=== PATIENT | female | born 1950 | race Caucasian/White ===

== ENCOUNTER 2020-06-24 14:33 | Inpatient (IN) ==
[2020-06-24] MEDS ORDERED: 0.9 % SODIUM CHLORIDE 2,000 ML IV ONE (14:48)
--- NOTE | 2020-06-24 14:49 | Emergency Department Note ---
Recheck HPI General Chief Complaint: Recheck/Abnormal Lab/Rx Stated Complaint: high calcium Time Seen by Provider: 06/24/20 15:39 Source: patient and other Mode of arrival: ambulatory Limitations: no limitations History of Present Illness HPI Narrative: Narrative: 70-year-old Leigh nAn Winkler comes in today for a calcium level of 19.3 and kidney failure. She is developmentally delayed and has a history of seizures. She is shaky and has jerking muscles and apparently she has been falling over at [facility]. She is very hard of hearing and there is concerned she may be dehydrated. She is rambling and I am unable to get meaningful history or review of systems from her. Regular doctor, Dr. Tyson ordered labs this morning and above findings are noted Laboratory shows undetectable Dilantin level. CBC with a hemoglobin of 16.6. CMP shows mildly elevated glucose and marked elevated creatinine at 2.9. Calcium is 19.3 and magnesium is 2.9 however potassium is 3.5 Review of her medicine list does show that she is on exogenous calcium tablets as well as hydrochlorothiazide and Lasix. She additionally takes vitamin D. She is DNR per documents Related Data Home Medications Medication Instructions Recorded Confirmed cholecalciferol (vitamin D3) 50 2,000 unit PO QDAY cap 06/28/17 04/09/20 mcg (2,000 unit) capsule acetaminophen 325 mg tablet 650 mg PO Q6H PRN 02/07/19 04/09/20 calcium carbonate 500 mg calcium 500 mg PO QDAY tab 02/07/19 04/09/20 (1,250 mg) tablet fluticasone furoate 27.5 1 spray INTRANASAL QDAY 02/07/19 04/09/20 mcg/actuation nasal spray,suspension multivitamin 1 cap PO QAM 02/07/19 04/09/20 furosemide [Lasix] 40 mg PO QDAY 06/24/20 06/24/20 Previous Rx's Medication Instructions Recorded comp.stocking,knee,long,medium #12 each 02/07/19 spironolactone 25 mg tablet 12.5 mg PO QDAY #30 tab 03/25/20 hydrochlorothiazide 25 mg tablet 25 mg PO QDAY #30 tab 04/14/20 phenytoin 50 mg chewable tablet 50 mg PO .COMPLEX #30 tab 04/21/20 citalopram 20 mg tablet 20 mg PO BID #60 tab 04/28/20 metoprolol tartrate 50 mg tablet 50 mg PO BID #60 tab 04/28/20 Allergies Allergy/AdvReac Type Severity Reaction Status Date / Time No Known Drug Allergies Allergy Verified 06/24/20 14:38 Review of Systems ROS ROS Narrative: Narrative: Limitations: ROS unobtainable due to patients medical condition PFSH Narrative Patient History Narrative: Narrative: Medical/Surgical/Family History All Active Problems (Updated 06/24/20 @ 20:28 by Alfa Maxwell MD) Acute kidney injury (Acute) Acute hypokalemia (Acute) Hypercalcemia (Acute) Wound of lower extremity (Acute) Fall (Acute) Venous stasis dermatitis (Chronic) Developmental disability (Chronic) Laceration (Acute) Lower extremity edema (Acute) Encounter for Health Maintenance Examination in Adult (Chronic) Incontinence in female (Chronic) Seizures (Chronic ~1978) Hypertension, essential (Chronic) Anxiety (Chronic) Medical History Anxiety (Chronic) Developmental disability (Chronic) likely due to anoxic brain injury at Encounter for Health Maintenance Examination in Adult (Chronic) 06/19/18 Hypertension, essential (Chronic) Lower extremity edema (Acute) Seizures (Chronic ~1978) in 20s and 30s without recurrence Venous stasis dermatitis (Chronic) Surgical History Squamous cell carcinoma (Resolved) removed 2015 from rt side of her face Family History Mother Arthritis Dementia Hypertension, essential Father Arthritis Melanoma Hypertension, essential Social History Smoking Status: Never smoker Alcohol Intake Frequency: does not drink Substance Use: does not use Exam Narrative Narrative: Narrative: Patient has gross hearing loss but I am able to communicate with her. She is alert, while she will answer questions she will not give me any meaningful review history-clearly has global developmental delay versus underlying dementia. It does not sound like she is sick nor have a history of injury. Normocephalic atraumatic. Conjunctive are clear sclerae white nonicteric. No nasal discharge or congestion. Oropharynx is with dry bu ccal mucosa. She has relatively poor dentition. Neck is supple without lymphadenopathy thyromegaly or carotid bruit. Heart is regular rate and rhythm no murmurs appreciated. Lungs are clear to auscultation bilaterally without wheezes rales rhonchi or respiratory distress. Abdomen is soft nontender nondistended. No pedal edema. General Limitations: no limitations Course Vital Signs Vital signs: Vital Signs Temperature 97.2 F 06/24/20 14:34 Pulse Rate 78 06/24/20 14:34 Respiratory Rate 21 06/24/20 14:34 Blood Pressure 132/86 06/24/20 14:34 Pulse Oximetry (%) 92 06/24/20 14:34 Temperature 97.2 F 06/24/20 14:34 Pulse Rate 66 06/24/20 20:01 Respiratory Rate 14 06/24/20 20:01 Blood Pressure 108/57 06/24/20 20:01 Pulse Oximetry (%) 93 06/24/20 20:01 [facility] MDM Narrative Medical decision making narrative: Narrative: After ordering treatment for hyp ercalcemia with renal failure, I discussed the situation with Dr. Butt, the well flow operator. I ordered calcitonin, zoledronic acid, and IV fluid. The well flow operator had me repeat laboratory and get an EKG. So I ordered a Chem-8 as this has ionized calcium on it It took us a while to start IV-she is a difficult stick- but we did start IV fluids. Up-to-date says that zoledronic acid is okay up to 4.5 creatinine and she is at 2.9 so we will go ahead and do that. Calcitonin was unavailable. I discussed the patient's situation with her sister, the Bev LUO. She was agreeable with this doing dialysis if needed to save the patient's life and transport if needed. Repeat laboratory concerned the hypercalcemia was real Dr. Butt said that the patient definitely needed calcitonin tonight so re commended we send the patient to [facility] if they have the medicine. So I discussed the situation with Dr. Stanley-hospitalist at [facility]-he seemed to think that we would be able to just send the medicine over and that the patient did not have to come over. So I talked to the pharmacist Delia on the sixth floor [facility] and she agreed to send us some calcitonin so the patient would not have to go over to [facility]. This seemed to be an agreeable solution so I called back Dr. Butt, our well flow operator who agreed to consult on the patient in our hospital, if we could get the calcitonin. Nursing staff will get this arranged. I did discuss the situation with Dr. Russo, our hospitalist who agreed to accept the patient for admission. She will go to the PCU At the time of admission, vital signs were stable and she was making urine after getting IV fluids. Dr. Butt, did not feel she needed urgent dialysis tonight that we could continue to treat with IV fluids and calcitonin. Lab Data Lab results reviewed: Yes I reviewed the patient's lab results. Labs: Lab Results 06/24/20 06/24/20 06/24/20 Range/Units 15:07 16:33 16:33 POC Hct 47.0 (36.0-48.0) % VBG Lactic Acid 2.2 H (0.5-2.0) mmol/L POC Sodium 136 (133-145) mmol/L POC Potassium 2.9 L* (3.3-5.1) mmol/L POC Chloride 90 L (96-108) mmol/L POC Total CO2 36 H (22-30) mmol/L POC BUN 65 H (8-23) mg/dl POC Creatinine 3.0 H (0.6-1.1) mg/dl POC Glucose 99 (70-105) mg/dL Calcium (8.6-10.4) mg/dl POC WB Ioniz Calcium 2.00 H* (1.16-1.32) mmol/L Total Protein (PEP) 6.9 (5.9-8.4) gm/dL 25-OH Vitamin D Total (>=30) ng/mL PTH Intact 6.0 L (15-65) pg/ml Urine Color Urine Appearance Urine pH (5.0-9.0) Ur Specific [place] (1.000-1.035) Urine Protein (NEG) mg/dL Urine Glucose (UA) (NEG) mg/dL Urine Ketones (NEG) mg/dL Urine Occult Blood (<0.03) mg/dL Urine Nitrate (NEG) Urine Bilirubin (NEG) mg/dL Urine Urobilinogen (NEG) mg/dL Ur Leukocyte Esterase (NEG) /uL 06/24/20 06/24/20 06/24/20 Range/Units 16:33 16:33 17:23 POC Hct (36.0-48.0) % VBG Lactic Acid (0.5-2.0) mmol/L POC Sodium (133-145) mmol/L POC Potassium (3.3-5.1) mmol/L POC Chloride (96-108) mmol/L POC Total CO2 (22-30) mmol/L POC BUN (8-23) mg/dl POC Creatinine (0.6-1.1) mg/dl POC Glucose (70-105) mg/dL Calcium 19.4 H* (8.6-10.4) mg/dl POC WB Ioniz Calcium (1.16-1.32) mmol/L Total Protein (PEP) (5.9-8.4) gm/dL 25-OH Vitamin D Total 68.44 (>=30) ng/mL PTH Intact (15-65) pg/ml Urine Color Yellow Urine Appearance Clear Urine pH 7.0 (5.0-9.0) Ur Specific [place] 1.010 (1.000-1.035) Urine Protein Neg (NEG) mg/dL Urine Glucose (UA) Negative (NEG) mg/dL Urine Ketones Neg (NEG) mg/dL Urine Occult Blood Neg (<0.03) mg/dL Urine Nitrate Neg (NEG) Urine Bilirubin Neg (NEG) mg/dL Urine Urobilinogen Neg (NEG) mg/dL Ur Leukocyte Esterase Neg (NEG) /uL CC TIME Critical Care Time Critical Care Time: No Total Critical Care Time: 30 Attestation: Approximately 30 minutes of critical care time which includes multiple phone calls for care coordination, discussing the situation with the patient's sister who is the D POA, reviewing studies and labs, serial evaluation and documentation. I was immediately available to the patient the entire time she was in the ER Discharge Plan Patient/Caregiver Discharge Instructions Pt seen by BENCH JEWELER/PA only: No Clinical Impression: Hypercalcemia, Acute kidney injury, Acute hypokalemia, Developmental disability Patient Disposition: Xfer As Inpt ([facility]) Condition: Critical Follow up with: Adrienne Butt MD [Physician] - Beverley Tyson DO [Primary Care Provider] - Prescriptions: No Action spironolactone 25 mg tablet 12.5 mg PO QDAY Qty: 30 RF: 3 hydrochlorothiazide 25 mg tablet 25 mg PO QDAY Qty: 30 RF: 3 phenytoin 50 mg tablet,chewable 50 mg PO .COMPLEX Qty: 30 RF: 3 citalopram 20 mg tablet 20 mg PO BID Qty: 60 RF: 2 metoprolol tartrate 50 mg tablet 50 mg PO BID Qty: 60 RF: 2 cholecalciferol (vitamin D3) 2,000 unit capsule 2,000 unit PO QDAY RF: 0 multivitamin capsule capsule 1 cap PO QAM RF: 0 fluticasone furoate 27.5 mcg/actuation spray,suspension 1 spray INTRANASAL QDAY RF: 0 calcium carbonate [Calcium 500] 500 mg calcium (1,250 mg) tablet 500 mg PO QDAY RF: 0 acetaminophen [Tylenol] 325 mg tablet 650 mg PO Q6H PRN (Reason: Pain) RF: 0 (DME) comp.stocking,knee,long,medium misc See Dose Instructions .ROUTE .MEDSUPPLY Qty: 12 RF: 0 furosemide [Lasix] 20 mg tablet 40 mg PO QDAY RF: 0
[2020-06-24] MEDS ORDERED: ZOLEDRONIC AC/MANNITOL/0.9NACL 4 MG/100 ML PIGGYBACK IV ONE ×2 (14:52→15:15)
[2020-06-24] MEDS ORDERED: CALCITONIN 400 UNIT/2 ML VIAL IM ONE ×2 (14:57→20:41)
[2020-06-24] MEDS ORDERED: ZOLEDRONIC ACID/WATER 4 MG/100 ML BAG IV ONE (15:15)
--- NOTE | 2020-06-24 16:35 | Nephrology Consult Note ---
HPI Data of Consult Consult date: 06/24/20 Primary Care Provider: Beverley Tyson DO Consult Narrative Reason for consult: hypercalcemia History of present illness: history obtained from discussion with healthcare providers as the patient has developmental delay 70 y.o F resident at [place], sent to ED for management of hypercalcemia 19.3- albumin 4.2. She had a tremor that triggered blood work. She has underlying CKD and developmental delay. She is on calcium 1.2 gram once a day, HCTZ 25mg po once a day, lasix 40mg po daily, multivitamin, spironolactone, vitamin D. Physical exam: Vital signs reviewed. General no acute distress HEENT nonicteric sclerae. Chest nonlabored respirations, no adventitious sounds over the anterior aspect Cardiovascular regular rate and rhythm, present radial pulses Abdomen nontender Skin warm and dry Neuro answers simple questions generally with one-word or 2 word sentences cc:: CC: Review of Systems Review of systems: unable to obtain accurate ROS 2/2 baseline mental status PFSH PFSH All Active Problems (Updated 06/24/20 @ 16:35 by Adrienne Butt MD) Hypercalcemia (Acute) Wound of lower extremity (Acute) Fall (Acute) Venous stasis dermatitis (Chronic) Developmental disability (Chronic) Laceration (Acute) Lower extremity edema (Acute) Encounter for Health Maintenance Examination in Adult (Chronic) Incontinence in female (Chronic) Seizures (Chronic ~1978) Hypertension, essential (Chronic) Anxiety (Chronic) Medical History Anxiety (Chronic) Developmental disability (Chronic) likely due to anoxic brain injury at Encounter for Health Maintenance Examination in Adult (Chronic) 06/19/18 Hypertension, essential (Chronic) Lower extremity edema (Acute) Seizures (Chronic ~1978) in 20s and 30s without recurrence Venous stasis dermatitis (Chronic) Surgical History Squamous cell carcinoma (Resolved) removed 2015 from rt side of her face Family History Mother Arthritis Dementia Hypertension, essential Father Arthritis Melanoma Hypertension, essential Social History marital status: single smoking status: Never smoker alcohol intake frequency: does not drink substance use type: does not use MEDS/ALLERGIES Home Medications and Allergies Home Medications Medication Instructions Recorded Confirmed Type cholecalciferol (vitamin D3) 50 2,000 unit PO QDAY cap 06/28/17 06/24/20 History mcg (2,000 unit) capsule acetaminophen 325 mg tablet 650 mg PO Q6H PRN 02/07/19 06/24/20 History calcium carbonate 500 mg calcium 500 mg PO QDAY tab 02/07/19 06/24/20 History (1,250 mg) tablet comp.stocking,knee,long,medium #12 each 02/07/19 06/24/20 Rx fluticasone furoate 27.5 1 spray INTRANASAL QDAY 02/07/19 06/24/20 History mcg/actuation nasal spray,suspension multivitamin 1 cap PO QAM 02/07/19 06/24/20 History spironolactone 25 mg tablet 12.5 mg PO QDAY #30 tab 03/25/20 06/24/20 Rx hydrochlorothiazide 25 mg tablet 25 mg PO QDAY #30 tab 04/14/20 06/24/20 Rx phenytoin 50 mg chewable tablet 50 mg PO .COMPLEX #30 tab 04/21/20 06/24/20 Rx citalopram 20 mg tablet 20 mg PO BID #60 tab 04/28/20 06/24/20 Rx metoprolol tartrate 50 mg tablet 50 mg PO BID #60 tab 04/28/20 06/24/20 Rx furosemide [Lasix] 40 mg PO QDAY 06/24/20 06/24/20 History Allergies Allergy/AdvReac Type Severity Reaction Status Date / Time No Known Drug Allergies Allergy Verified 06/24/20 14:38 Physical Examination Vital Signs Vital signs: Temp Pulse Resp BP Pulse Ox 36.2 C 65 15 129/61 98 06/24/20 14:34 06/24/20 16:01 06/24/20 16:01 06/24/20 16:01 06/24/20 16:01 A/P Assessment and plan (1) Hypercalcemia: Status: Acute Narrative A/P Narrative: hypercalcemia - severe, Ca 19.3, albumin 4.2 associated with SHANI on CKD. I suspect that the hypercalcemia is chronic as she is tolerating very well this high level of Ca (mentation at baseline, EKG with sinus rhythm 06/24/2020 , QT 432) underlying CKD - unknown baseline Scr., but as above I think she has a component of SHANI on CKD rather than just progression of CKD Based on report her mental status is at baseline, she is awake, answers simple questions. got 1 dose zolendronic acid *volume expansion, ideally to maintain the UOP 100-150mL/hour. I discussed with the ED RN and instructed her to give current bag of saline at 250cc/hour. *unfortunately calcitonin is not available at our pharmacy. * Marquez to monitor strict I/O *hold HCTZ, spironolactone, Ca, vit D *check PTH, 25 oh vit D, 1,25 OH vit D, spep with immunofixation, free kappa lambda chains *needs telemetry *repeat labs, including Ca level. consideration for dialysis based on response to above initial management/ clinical picture/ urine output and goals of care *trying to identify family, she is a DNR per paperwork from [place] * q6hr RFP hemodynamics and volume I think she is volume depleted. volume expansion as above. Normotensive acid-base Bicarbonate 32 BUN/ K 74/3.5 Time Spent With Patient Time: Total time spent is greater than 50% in coordination of care (as documented) at patient's floor/unit and/or counseling patient:
[2020-06-24 16:45] LABS: POC Blood Urea Nitrogen 65 mg/dl (8-23); POC CO2 36 mmol/L (22-30); POC Chloride 90 mmol/L (96-108); POC Glucose, Random 99 mg/dL (70-105); POC Potassium 2.9 mmol/L (3.3-5.1); POC Sodium 136 mmol/L (133-145)
[2020-06-24 18:11] LABS: Appearance,Urine CLEAR; Bilirubin,Urine NEG (NEG); Color,Urine YELLOW; Glucose,Urine (UA) NEGATIVE (NEG); Ketones,Urine NEG (NEG); Leukocyte Esterase,Urine NEG /uL (NEG); Nitrate,Urine NEG (NEG); Protein,Urine NEG (NEG); Urine Blood NEG mg/dL (<0.03); Urobilinogen,Urine NEG (NEG)
[2020-06-24] MEDS ORDERED: 0.9 % SODIUM CHLORIDE 1,000 ML IV SCH ×4 (19:00→22:33)
[2020-06-24 19:34] LABS: Total Protein PEP 6.9 gm/dL (5.9-8.4)
[2020-06-24] MEDS ORDERED: ONDANSETRON 4 MG/2 ML VIAL IV PRN ×2 (21:16→22:33)
[2020-06-24] MEDS ORDERED: PHENYTOIN 50 MG TAB.CHEW PO SCH (21:30)
--- NOTE | 2020-06-24 21:43 | Internal Med History&Physical ---
HPI History of Present Illness Patient information: Note initiated : 06/24/20 at 9:42 pm Service Date, if different from initiated Date: [] Patient: Leigh Ann Winkler a 70 y/o F admitted on for High Calcium. Chief Complaint: [] History of present illness: Ms. Winkler is a 70 year old F with with a history of global developmental delay, history of seizure, and hypertension who was sent to the ER by Dr. Tyson who found her to have hypercalcemia. Patient is a poor historian and most of the history is obtained from her chart and the ER physician Dr. Maxwell. She was found to have hand tremor. In the ER, her calcium was 19.3. 2 L normal saline bolus was given. Calcitonin 300 units x 2 was given. 1 dose zolendronic acid was given. When I saw this patient in the ER, she was sleeping but arousable. She can answer simple questions. Denied headache, dizziness, chest pain, shortness of breath, abdominal pain, nausea, vomiting, dysuria, polydipsia or polyuria. Review of Systems All systems: reviewed and no additional remarkable complaints except as stated PFSH PFSH All Active Problems Acute kidney injury (Acute) Acute hypokalemia (Acute) Hypercalcemia (Acute) Wound of lower extremity (Acute) Fall (Acute) Venous stasis dermatitis (Chronic) Developmental disability (Chronic) Laceration (Acute) Lower extremity edema (Acute) Encounter for Health Maintenance Examination in Adult (Chronic) Incontinence in female (Chronic) Seizures (Chronic ~1978) Hypertension, essential (Chronic) Anxiety (Chronic) Medical History Anxiety (Chronic) Developmental disability (Chronic) likely due to anoxic brain injury at Encounter for Health Maintenance Examination in Adult (Chronic) 06/19/18 Hypertension, essential (Chronic) Lower extremity edema (Acute) Seizures (Chronic ~1978) in 20s and 30s without recurrence Venous stasis dermatitis (Chronic) Surgical History Squamous cell carcinoma (Resolved) removed 2015 from rt side of her face Family History Mother Arthritis Dementia Hypertension, essential Father Arthritis Melanoma Hypertension, essential Social History marital status: single smoking status: Never smoker alcohol intake frequency: does not drink substance use type: does not use MEDS/ALLERGIES Home Medications and Allergies Home Medications Medication Instructions Recorded Confirmed Type cholecalciferol (vitamin D3) 50 2,000 unit PO QDAY cap 06/28/17 06/24/20 History mcg (2,000 unit) capsule acetaminophen 325 mg tablet 650 mg PO Q6H PRN 02/07/19 06/24/20 History calcium carbonate 500 mg calcium 500 mg PO QDAY tab 02/07/19 06/24/20 History (1,250 mg) tablet comp.stocking,knee,long,medium #12 each 02/07/19 06/24/20 Rx fluticasone furoate 27.5 1 spray INTRANASAL QDAY 02/07/19 06/24/20 History mcg/actuation nasal spray,suspension multivitamin 1 cap PO QAM 02/07/19 06/24/20 History spironolactone 25 mg tablet 12.5 mg PO QDAY #30 tab 03/25/20 06/24/20 Rx hydrochlorothiazide 25 mg tablet 25 mg PO QDAY #30 tab 04/14/20 06/24/20 Rx phenytoin 50 mg chewable tablet 50 mg PO .COMPLEX #30 tab 04/21/20 06/24/20 Rx citalopram 20 mg tablet 20 mg PO BID #60 tab 04/28/20 06/24/20 Rx metoprolol tartrate 50 mg tablet 50 mg PO BID #60 tab 04/28/20 06/24/20 Rx furosemide [Lasix] 40 mg PO QDAY 06/24/20 06/24/20 History Allergies Allergy/AdvReac Type Severity Reaction Status Date / Time No Known Drug Allergies Allergy Verified 06/24/20 14:38 EXAM Constitutional Vitals: Temp Pulse Resp BP Pulse Ox 97.2 F 82 20 114/78 93 06/24/20 14:34 06/24/20 21:16 06/24/20 21:16 06/24/20 21:16 06/24/20 21:16 Additional findings Additional findings: General - No acute distress Eyes - PERRLA, EOM intact ENT no rhinorrhea, no noticeable or palpable swelling, no redness or rash around throat or on face Neck supple, no JVD, no thyromegaly Respiratory: Lungs -clear, no wheezing or crackles. Cardiovascular - RRR no m/r/g, GI - Normal bowel sounds, no distended, soft. Extremeties - No edema, cyanosis or clubbing. Left hand significantly smaller than right hand. Hemo/lymphatic/immune no lymphadenopathy Neurological Alert and oriented x 2, no focal neurological deficits. Psychiatry flat affect DATA Data Completed and Pending Labs: Labs from last 24 hours 06/24/20 06/24/20 06/24/20 21:10 19:49 19:41 POC Hct VBG Lactic Acid POC Sodium Sodium Pending POC Potassium Potassium Pending POC Chloride Chloride Pending Carbon Dioxide Pending POC Total CO2 Anion Gap Pending POC BUN BUN Pending Creatinine Pending POC Creatinine GFR Calculation Pending Glucose Pending POC Glucose Calcium Pending POC WB Ioniz Calcium Phosphorus Pending Total Protein (PEP) Albumin Pending Albumin (PEP) Globulin (PEP) Albumin/Globulin (PEP) Wnpae-5-Udrixvdsk Lqgqd-1-Malhpyanf Beta Globulins Gamma Globulins PEP Interpretation 25-OH Vitamin D Total Vit D 1,25-Dihydroxy Pending 1,25 Dihydroxy Vit D2 Pending 1,25 Dihydroxy Vit D3 Pending PTH Intact PTH Related Protein Pending Urine Color Urine Appearance Urine pH Ur Specific [place] Urine Protein Urine Glucose (UA) Urine Ketones Urine Occult Blood Urine Nitrate Urine Bilirubin Urine Urobilinogen Ur Leukocyte Esterase U Random Total Protein U [place] Prot/Creat Ratio Ur Creatinine mg/dL Urine Albumin (%) U Wvmfu-2-Rvwzdjha (%) U Imbzb-0-Ixsrbisx (%) U Beta Globulin (%) U Gamma Globulin (%) Urine PEP Interpret U Monoclonal Protein U Monoclonal Protein 2 PATRICA Interpretation Urine Immunofixation Free Cooper LC, Quant Free Lambda LC, Quant Free Cooper/Lambda Ratio 06/24/20 06/24/20 06/24/20 17:24 17:24 17:23 POC Hct VBG Lactic Acid POC Sodium Sodium POC Potassium Potassium POC Chloride Chloride Carbon Dioxide POC Total CO2 Anion Gap POC BUN BUN Creatinine POC Creatinine GFR Calculation Glucose POC Glucose Calcium POC WB Ioniz Calcium Phosphorus Total Protein (PEP) Albumin Albumin (PEP) Globulin (PEP) Albumin/Globulin (PEP) Jvycq-6-Wwoiivmrz Uxeqo-0-Lidsesvgi Beta Globulins Gamma Globulins PEP Interpretation 25-OH Vitamin D Total Vit D 1,25-Dihydroxy 1,25 Dihydroxy Vit D2 1,25 Dihydroxy Vit D3 PTH Intact PTH Related Protein Urine Color Yellow Urine Appearance Clear Urine pH 7.0 Ur Specific [place] 1.010 Urine Protein Neg Urine Glucose (UA) Negative Urine Ketones Neg Urine Occult Blood Neg Urine Nitrate Neg Urine Bilirubin Neg Urine Urobilinogen Neg Ur Leukocyte Esterase Neg U Random Total Protein Pending U [place] Prot/Creat Ratio Pending Ur Creatinine mg/dL Pending Urine Albumin (%) Pending U Sfoxh-7-Wyddnujh (%) Pending U Ubnlo-7-Gvmteoqd (%) Pending U Beta Globulin (%) Pending U Gamma Globulin (%) Pending Urine PEP Interpret Pending U Monoclonal Protein Pending U Monoclonal Protein 2 Pending PATRICA Interpretation Urine Immunofixation Pending Free Cooper LC, Quant Free Lambda LC, Quant Free Cooper/Lambda Ratio 06/24/20 06/24/20 06/24/20 16:33 16:33 16:33 POC Hct VBG Lactic Acid POC Sodium Sodium POC Potassium Potassium POC Chloride Chloride Carbon Dioxide POC Total CO2 Anion Gap POC BUN BUN Creatinine POC Creatinine GFR Calculation Glucose POC Glucose Calcium 19.4 H* POC WB Ioniz Calcium Phosphorus Total Protein (PEP) Albumin Albumin (PEP) Globulin (PEP) Albumin/Globulin (PEP) Uxqke-6-Rjjumsghr Fgvow-1-Gkohqqxwl Beta Globulins Gamma Globulins PEP Interpretation 25-OH Vitamin D Total 68.44 Vit D 1,25-Dihydroxy 1,25 Dihydroxy Vit D2 1,25 Dihydroxy Vit D3 PTH Intact PTH Related Protein Urine Color Urine Appearance Urine pH Ur Specific [place] Urine Protein Urine Glucose (UA) Urine Ketones Urine Occult Blood Urine Nitrate Urine Bilirubin Urine Urobilinogen Ur Leukocyte Esterase U Random Total Protein U [place] Prot/Creat Ratio Ur Creatinine mg/dL Urine Albumin (%) U Mrbkz-3-Pgwxfuvu (%) U Ujucz-9-Quqwmyhp (%) U Beta Globulin (%) U Gamma Globulin (%) Urine PEP Interpret U Monoclonal Protein U Monoclonal Protein 2 PATRICA Interpretation Pending Urine Immunofixation Free Cooper LC, Quant Free Lambda LC, Quant Free Cooper/Lambda Ratio 06/24/20 06/24/20 06/24/20 16:33 16:33 16:33 POC Hct 47.0 VBG Lactic Acid POC Sodium 136 Sodium POC Potassium 2.9 L* Potassium POC Chloride 90 L Chloride Carbon Dioxide POC Total CO2 36 H Anion Gap POC BUN 65 H BUN Creatinine POC Creatinine 3.0 H GFR Calculation Glucose POC Glucose 99 Calcium POC WB Ioniz Calcium 2.00 H* Phosphorus Total Protein (PEP) 6.9 Albumin Albumin (PEP) Pending Globulin (PEP) Pending Albumin/Globulin (PEP) Pending Qzpsr-8-Feyimnqgx Pending Tcijk-4-Gkndrudzz Pending Beta Globulins Pending Gamma Globulins Pending PEP Interpretation Pending 25-OH Vitamin D Total Vit D 1,25-Dihydroxy 1,25 Dihydroxy Vit D2 1,25 Dihydroxy Vit D3 PTH Intact 6.0 L PTH Related Protein Urine Color Urine Appearance Urine pH Ur Specific [place] Urine Protein Urine Glucose (UA) Urine Ketones Urine Occult Blood Urine Nitrate Urine Bilirubin Urine Urobilinogen Ur Leukocyte Esterase U Random Total Protein U [place] Prot/Creat Ratio Ur Creatinine mg/dL Urine Albumin (%) U Xclwv-5-Jscjpurv (%) U Kzlma-4-Bssocgpd (%) U Beta Globulin (%) U Gamma Globulin (%) Urine PEP Interpret U Monoclonal Protein U Monoclonal Protein 2 PATRICA Interpretation Urine Immunofixation Free Cooper LC, Quant Pending Free Lambda LC, Quant Pending Free [place]/Lambda Ratio Pending 06/24/20 15:07 POC Hct VBG Lactic Acid 2.2 H POC Sodium Sodium POC Potassium Potassium POC Chloride Chloride Carbon Dioxide POC Total CO2 Anion Gap POC BUN BUN Creatinine POC Creatinine GFR Calculation Glucose POC Glucose Calcium POC WB Ioniz Calcium Phosphorus Total Protein (PEP) Albumin Albumin (PEP) Globulin (PEP) Albumin/Globulin (PEP) Kdqkq-5-Dziszrjae Llgqc-6-Rzddceeqm Beta Globulins Gamma Globulins PEP Interpretation 25-OH Vitamin D Total Vit D 1,25-Dihydroxy 1,25 Dihydroxy Vit D2 1,25 Dihydroxy Vit D3 PTH Intact PTH Related Protein Urine Color Urine Appearance Urine pH Ur Specific [place] Urine Protein Urine Glucose (UA) Urine Ketones Urine Occult Blood Urine Nitrate Urine Bilirubin Urine Urobilinogen Ur Leukocyte Esterase U Random Total Protein U [place] Prot/Creat Ratio Ur Creatinine mg/dL Urine Albumin (%) U Nmige-8-Ozvskhft (%) U Azpwb-5-Hsunnvum (%) U Beta Globulin (%) U Gamma Globulin (%) Urine PEP Interpret U Monoclonal Protein U Monoclonal Protein 2 PATRICA Interpretation Urine Immunofixation Free Cooper LC, Quant Free Lambda LC, Quant Free Cooper/Lambda Ratio A/P Narrative A/P Narrative: 1. Hypercalcemia Calcium 19.3 in the ER Etiology unknown Pt is on Vit D3 2000 units daily, calcium carbonate 500mg daily, HCTZ 25mg daily EKG - QT 432 PTH 6.0 PTH related protein, 25-HO vit D, 1,25 OH vit D, SPEP with immunofixation, free kappa lambda chains, urine calcium CT chest Calcitonin 300 units x 2 and 1 dose zolendronic acid were given in the ER NS bolus 2 L was given in the ER NS 100ml/hr Vitamin D, calcium and HCTZ are on hold. Lasix 20mg iv once repeat calcium in am [place] Dr. Butt is no board. Really appreciate it. 2. Global developmental delay/dementia Monitor 3. Hx of seizure Continue home medication phenytoin 4. Dehydration IV fluid 5. SHANI or SHANI on CKD stage 3-4, creatinine 1.1 on 06/19/2018 Avoid nephrotoxic meds Repeat renal function in morning 6. Elevation of liver enzyme Repeat liver enzyme in the morning 7. Hypokalemia Replaced Continue Spironolactone Repeat potassium in the morning 8. HTN Continue metoprolol 50 mg twice daily and Spironolactone 9. DVT prophylaxis: Heparin 10. CODE STATUS: DNR per paperwork from [place] . Patient also declined CPR and intubation. Time Spent With Patient Time: Total time spent is greater than 50% in coordination of care (as documented) at patient's floor/unit and/or counseling patient:
[2020-06-24] MEDS ORDERED: 0.9 % SODIUM CHLORIDE 10 ML SYRINGE IV SCH (22:00)
[2020-06-24] MEDS ORDERED: POTASSIUM CHLORIDE 20 MEQ TABLET PO SCH (22:00)
[2020-06-24] MEDS ORDERED: FUROSEMIDE 20 MG/2 ML VIAL IV ONE ×2 (22:33→23:10)
[2020-06-24 22:44] LABS: Albumin 3.7 gm/dL (3.2-5.2); Calcium 17.5 mg/dl (8.6-10.4); Phosphorous 4.1 mg/dL (2.7-4.5)
[2020-06-24] MEDS: POTASSIUM CHLORIDE 20 MEQ TABLET PO SCH (23:10)
[2020-06-24] MEDS ORDERED: POTASSIUM CHLORIDE 20 MEQ TABLET PO ONE (23:12)
[2020-06-24] MEDS: 0.9 % SODIUM CHLORIDE 1,000 ML IV SCH (23:14)
[2020-06-25] MEDS: POTASSIUM CHLORIDE 20 MEQ TABLET PO SCH ×2 (01:11→17:17)
[2020-06-25] MEDS ORDERED: POTASSIUM CHLORIDE 20 MEQ TABLET PO ONE (01:16)
--- NOTE | 2020-06-25 04:52 | Cat Scan Report ---
CLINICAL INFORMATION: Hypercalcemia. Evaluate for malignancy COMPARISON: None TECHNIQUE: 0.625 mm axial slices were obtained from the lung apices through the bases without intravenous contrast. 2.5 mm Sagittal, coronal and axial reformatted images were processed and reviewed at bone, lung and soft tissue windows. 7 mm axial MIP images were also reconstructed to optimize pulmonary nodule detection.The exam was performed using radiation dose optimization techniques including, but not limited to, automated exposure control, adjustment of the mA and/or kV according to patient size and use of iterative reconstruction technique. FINDINGS: Pulmonary parenchymal windows show elevated lung volumes and dilatation/wall thickening of the bronchi compatible with bronchitis or asthma. There is subsegmental atelectasis in both posterior inferior lower lobes. No nodules or infiltrates appreciated. Pleural spaces are normal The mediastinal windows show the heart is normal in size without calcific plaque in the coronary arteries. The noncontrast thoracic aorta and pulmonary arteries are normal in diameter. There is no adenopathy in the mediastinal hilar or axillary regions. Small hiatal hernia appreciated. Thyroid is unremarkable. Bone windows show moderate chronic T5 and mild chronic T7 compression fractures unchanged since a lateral chest x-ray from 06/19/2018. At C6-C7, moderate broad disc spur complex results in moderate central canal and mild bilateral IV foraminal narrowing. Images through the superior abdomen show no abnormality IMPRESSION: 1. No evidence of malignancy or other cause identified for hypercalcemia. 2. Chronic bronchitis or asthma. Subsegmental atelectasis both lower lobes. 3. Moderate chronic T5 and mild chronic T7 compression fractures - stable since a lateral chest x-ray over two years ago. 4. C6-7: Moderate broad disc spur complex resulting in moderate central canal and mild bilateral IV foraminal narrowing. Interpreted and Authenticated by: Florin Marcelo 06/25/20
[2020-06-25 07:18] LABS: Bilirubin,Direct < 0.2 mg/dL (0.0-0.3)
[2020-06-25] MEDS ORDERED: PANTOPRAZOLE 40 MG TABLET PO SCH (07:30)
[2020-06-25 07:34] LABS: ALT/SGPT 35 U/l (0-40); AST/SGOT 35 U/l (0-37); Albumin/Globulin Ratio 1.2 (1.0-2.3); Alkaline Phosphatase 79 U/L (39-117); Bilirubin,Total 0.5 mg/dL (0.0-1.0); Blood Urea Nitrogen 58 mg/dl (8-23); Calcium 16.6 mg/dl (8.6-10.4); Carbon Dioxide 34 mmol/L (22-30); Chloride 95 mmol/L (96-108); Globulin 3.3 gm/dL (2.2-3.7); Glomerular Filtration Rate 23; Glucose 112 mg/dL (70-105); Lactate Dehydrogenase 242 U/L (94-250); Phosphorous 2.3 mg/dL (2.7-4.5); Triglycerides 176 mg/dl (<150); Uric Acid 19.7 mg/dL (2.5-8.0)
[2020-06-25] MEDS: 0.9 % SODIUM CHLORIDE 1,000 ML IV SCH ×4 (07:35→23:05)
[2020-06-25] MEDS: 0.9 % SODIUM CHLORIDE 10 ML SYRINGE IV SCH ×3 (07:35→21:06)
[2020-06-25] MEDS: PANTOPRAZOLE 40 MG TABLET PO SCH (07:36)
--- NOTE | 2020-06-25 08:07 | Nephrology Progress Note ---
SUBJECTIVE Subjective Patient information: Note initiated : 06/25/20 at 7:56 am Service Date, if different from initiated Date: [] Patient: Leigh Ann Winkler 70 y/o F admitted on 06/24/20 for High Calcium. Chief Complaint: hypercalcemia Mental status unchanged, hypercalcemia is improving, good urine output. Constitutional Vitals: Vital Signs Temp Pulse Resp BP Pulse Ox 36.3 C 83 12 87/66 96 06/25/20 04:41 06/25/20 06:03 06/25/20 06:03 06/25/20 06:03 06/25/20 06:03 Period Temp Pulse Resp BP Sys/Jeter Pulse Ox Last 24 Hr 36.2 C-36.3 C 64-83 12-23 87-136/47-95 83-99 Intake and Output 06/24/20 06/25/20 06/25/20 21:59 05:59 13:59 Intake Total 899 1201 1000 Output Total 625 1725 Balance 274 -524 1000 Weight 68.039 kg PE general NAD HEENT non icteric sclerae, dry oral mucosa - breathing through mouth resp non labored respirations, symmetric chest expansions neuro alert, answers simple questions with one-word or very short sentences Intake & Output: Intake & Output 06/24/20 06/25/20 06/25/20 21:59 05:59 13:59 Intake Total 899 1201 1000 Output Total 625 1725 Balance 274 -524 1000 Weight 68.039 kg Intake: IV 899 1201 1000 Sodium Chloride 0.9% 1,000 ml @ 799 1201 1000 125 mls/hr IV .Q8H [facility] Rx#: [id number] ZOMETA 4 mg In 100 ml @ 200 mls 100 /hr IV ONCE ONE Rx#:[id number] Output: Urine Catheter Amount 625 1725 Other: Urine Appearance Clear Clear Uretheral (Marquez) Clear Clear Urine Color Pale Pale Uretheral (Marquez) Pale Pale Stool Size Small Stool Color Brown Stool Consistency Dry and Hard Richelle A/P Assessment and plan (1) Hypercalcemia: Status: Acute (2) Acute kidney injury: Status: Acute (3) CKD (chronic kidney disease): Status: Chronic Narrative A/P Narrative: Hypercalcemia is improving. Not PTH mediated. 25 hydroxy vitamin D was 70. do not resume vitamin D s/p calcitonin 9/29, bisphosphonate- zolendronic acid 06/24, IV fluids *Continue IV fluids at current rate 125 cc /hr, normal saline *Continue strict I's and O's *Check renal function panel every 12 hours *Can replace electrolytes per electrolyte protocol *Follow-up results of SPEP, UPEP, immunofixation, free light chains, PTH RP *Advise against using thiazides for blood pressure control in the future SHANI is improving, nonoliguric Serum creatinine back was 3 on 06/24/2020. SCR now down to 2.1. In the setting of volume depletion, hypercalcemia hemodynamics and volume Normotensive at the time of my visit. Mild hypotension around 6:00, patient was asleep. Continue IV fluids as above *hold spironolactone for now. ok with metoprolol with holding parameters (hold if SBP <=110) acid-base Bicarbonate 34 BUN/ K 58/3.2 Azotemia is improving. Hypokalemia, replace per protocol I discussed with the patient sister who is the power of assistant district attorney yesterday 06/24/2020 about the findings, plan, potential outcome. All questions answered, approximately 10 minutes spent discussing with the sister. Time Spent With Patient Time: Total time spent is greater than 50% in coordination of care (as documented) at patient's floor/unit and/or counseling patient: Total time spent with greater than 50% in coordination of care (as documented) at patient's floor/unit and/or counseling patient:: 25 - 35 minutes
[2020-06-25] MEDS ORDERED: CITALOPRAM 20 MG TABLET PO SCH (09:00)
[2020-06-25] MEDS ORDERED: HEPARIN 5,000 UNIT/ML VIAL SQ SCH (09:00)
[2020-06-25] MEDS ORDERED: POTASSIUM PHOSPHATE 20 MEQ in DEXTROSE 5% IN WATER 250 ML IV ONE ×2 (09:00→12:07)
[2020-06-25] MEDS ORDERED: DOCUSATE SODIUM 100 MG CAPSULE PO SCH (09:00)
[2020-06-25] MEDS ORDERED: FLUTICASONE FUROATE INTRANASAL SCH (09:00)
[2020-06-25] MEDS ORDERED: SPIRONOLACTONE 25 MG TABLET PO SCH ×2 (09:00)
[2020-06-25] MEDS ORDERED: CALCITONIN 400 UNIT/2 ML VIAL IM SCH (09:00)
[2020-06-25] MEDS ORDERED: METOPROLOL TARTRATE 50 MG TABLET PO SCH ×2 (09:00)
[2020-06-25] MEDS: METOPROLOL TARTRATE 50 MG TABLET PO SCH ×2 (09:22→21:05)
[2020-06-25] MEDS: DOCUSATE SODIUM 100 MG CAPSULE PO SCH ×2 (09:23→21:05)
[2020-06-25] MEDS: CITALOPRAM 20 MG TABLET PO SCH ×2 (09:23→21:05)
[2020-06-25] MEDS: HEPARIN 5,000 UNIT/ML VIAL SQ SCH ×2 (09:24→21:05)
[2020-06-25] MEDS: FLUTICASONE PROPIONATE SPRAY.NAS NS SCH (09:31)
[2020-06-25] MEDS: PHENYTOIN 50 MG TAB.CHEW PO SCH (09:48)
--- NOTE | 2020-06-25 11:57 | Internal Med Progress Note ---
SUBJECTIVE Subjective Patient information: Note initiated : 06/25/20 at 11:55 am Service Date, if different from initiated Date: [] Patient: Leigh Ann Winkler 70 y/o F admitted on 06/24/20 for High Calcium. Chief Complaint: [] History of present illness: Ms. Winkler is a 70 year old F with with a history of global developmental delay, history of seizure, and hypertension who was sent to the ER by Dr. Tyson who found her to have hypercalcemia. Patient is a poor historian and most of the history is obtained from her chart and the ER physician Dr. Maxwell. She was found to have hand tremor. In the ER, her calcium was 19.3. 2 L normal saline bolus was given. Calcitonin 300 units x 2 was given. 1 dose zolendronic acid was given. When I saw this patient in the ER, she was sleeping but arousable. She can answer simple questions. Denied headache, dizziness, chest pain, shortness of breath, abdominal pain, nausea, vomiting, dysuria, polydipsia or polyuria. 06/25 Does not seem to have medical complaints. Vital signs are stable and acceptable. On 0.5 L oxygen with good desaturation. Good urine output Potassium of 3.2, creatinine 2.1, calcium of 16.6, phosphorus 2.3 25 OH vitamin D 68.44, PTH 6.[address] manager [address] Butt, who suggested to continue IV NS 125ml/h, no lasix today. Review of Systems All systems: reviewed and no additional remarkable complaints except as stated Constitutional Vitals: Vital Signs Temp Pulse Resp BP Pulse Ox 97.7 F 83 20 111/80 94 06/25/20 08:01 06/25/20 06:03 06/25/20 10:00 06/25/20 10:00 06/25/20 10:00 Period Temp Pulse Resp BP Sys/Jeter Pulse Ox Last 24 Hr 97.1 F-97.7 F 64-83 12-23 87-136/47-95 83-99 Intake and Output 06/24/20 06/25/20 06/25/20 21:59 05:59 13:59 Intake Total 899 1201 1000 Output Total 636 1725 425 Balance 274 -524 575 Weight 68.039 kg Intake & Output: Intake & Output 06/24/20 06/25/20 06/25/20 21:59 05:59 13:59 Intake Total 899 1201 1000 Output Total 625 1725 425 Balance 274 -524 575 Weight 68.039 kg Intake: IV 899 1201 1000 Sodium Chloride 0.9% 1,000 ml @ 799 1201 1000 125 mls/hr IV .Q8H [facility] Rx#: [id number] ZOMETA 4 mg In 100 ml @ 200 mls 100 /hr IV ONCE ONE Rx#:[id number] Output: Urine Catheter Amount 625 1725 425 Other: Urine Appearance Clear Clear Clear Uretheral (Marquez) Clear Clear Clear Urine Color Pale Pale Bright Yellow Uretheral (Marquez) Pale Pale Pale Urine Odor Normal Stool Size Small Small Stool Color Brown Brown Stool Consistency Dry and Hard Dry and Hard Richelle Richelle Additional findings Additional findings: General - No acute distress Eyes - PERRLA, EOM intact ENT no rhinorrhea, no noticeable or palpable swelling, no redness or rash around throat or on face Neck supple, no JVD, no thyromegaly Respiratory: Lungs -clear, no wheezing or crackles. Cardiovascular - RRR no m/r/g, GI - Normal bowel sounds, no distended, soft. Extremeties - No edema, cyanosis or clubbing. Left hand significantly smaller than right hand. Hemo/lymphatic/immune no lymphadenopathy Neurological Alert and oriented x 2, no focal neurological deficits. Psychiatry flat affect OBJ DATA Labs CBC & Chem 7: 06/25/20 06:00 Labs: Abnormal Lab Results 06/25/20 06/24/20 06/24/20 06:00 21:10 16:33 VBG Lactic Acid POC Potassium Potassium 3.2 L 2.8 L* POC Chloride Chloride 95 L 95 L Carbon Dioxide 34 H 36 H POC Total CO2 POC BUN BUN 58 H 70 H Creatinine 2.1 H 2.4 H POC Creatinine Glucose 112 H Uric Acid 19.7 H Calcium 16.6 H* 17.5 H* 19.4 H* POC WB Ioniz Calcium Phosphorus 2.3 L Triglycerides 176 H PTH Intact 06/24/20 06/24/20 06/24/20 16:33 16:33 15:07 VBG Lactic Acid 2.2 H POC Potassium 2.9 L* Potassium POC Chloride 90 L Chloride Carbon Dioxide POC Total CO2 36 H POC BUN 65 H BUN Creatinine POC Creatinine 3.0 H Glucose Uric Acid Calcium POC WB Ioniz Calcium 2.00 H* Phosphorus Triglycerides PTH Intact 6.0 L Meds: Medications Citalopram Hydrobromide (Celexa) 20 mg PO BID [facility] Last Admin: 06/25/20 09:23 Dose: 20 mg Documented by: Docusate Sodium (Colace) 100 mg PO BID [facility] Last Admin: 06/25/20 09:23 Dose: 100 mg Documented by: Fluticasone Propionate (Flonase) 1 spray NS QDAY [facility] Last Admin: 06/25/20 09:31 Dose: Not Given Documented by: Heparin Sodium (Porcine) (Heparin) 5,000 unit SQ Q12 [facility] Last Admin: 06/25/20 09:24 Dose: 5,000 unit Documented by: Sodium Chloride (Sodium Chloride 0.9%) 1,000 mls @ 125 mls/hr IV .Q8H [facility] Last Admin: 06/25/20 07:35 Dose: 125 mls/hr Documented by: Metoprolol Tartrate (Lopressor) 50 mg PO BID [facility] Last Admin: 06/25/20 09:22 Dose: 50 mg Documented by: Ondansetron HCl (Zofran) 4 mg IV Q4HP PRN; Protocol PRN Reason: Nausea And Vomiting Pantoprazole Sodium (Protonix) 40 mg PO QAMAC [facility] Last Admin: 06/25/20 07:36 Dose: 40 mg Documented by: Phenytoin (Dilantin) 50 mg PO DAILY [facility] Last Admin: 06/25/20 09:48 Dose: 50 mg Documented by: Potassium Chloride (Kdur) 20 meq PO BIDCC [facility] Stop: 06/26/20 08:01 Sodium Chloride (Saline Flush) 10 ml IV Q8 [facility] Last Admin: 06/25/20 07:35 Dose: Not Given Documented by: A/P Narrative A/P Narrative: 1. Hypercalcemia Calcium 19.3 in the ER Etiology unknown Pt is on Vit D3 2000 units daily, calcium carbonate 500mg daily, HCTZ 25mg daily EKG - QT 432 PTH 6.0 PTH related protein, 25-HO vit D (68.44), 1,25 OH vit D, SPEP with immunofixation, free kappa lambda chains, urine calcium CT chest - no evidence of malignancy Calcitonin 300 units x 2 and 1 dose zolendronic acid were given in the ER NS bolus 2 L was given in the ER NS 125ml/hr Vitamin D, calcium and HCTZ are on hold. repeat calcium in am [employer] Room Inspector Dr. Butt is no board. Really appreciate it. 2. Global developmental delay/dementia Monitor 3. Hx of seizure Continue home medication phenytoin 4. Dehydration IV fluid 5. SHANI or SHANI on CKD stage 3-4, creatinine 1.1 on 06/19/2018 Avoid nephrotoxic meds Repeat renal function in morning 6. Elevation of liver enzyme resolved Repeat liver enzyme in the morning 7. Hypokalemia Replaced Continue Spironolactone Repeat potassium in the morning 8. HTN Continue metoprolol 50 mg twice daily and Spironolactone 9. DVT prophylaxis: Heparin 10. CODE STATUS: DNR per paperwork from [place] . Patient also declined CPR and intubation. Time Spent With Patient Time: Total time spent is greater than 50% in coordination of care (as documented) at patient's floor/unit and/or counseling patient:
--- NOTE | 2020-06-25 12:53 | Event Note ---
Event Note Event Note: Advanced Care Planning Documents: Pt's decisional Capacity: No POLST form completed: Yes. RN called sister Ladarius who declined CPR and intubation for Ms Cathi Beltrán. I called and explained CPR and intubation in detail to Ladarius ([phone]) who would like me to call her back in half a hour because she would like to discuss with her sister. I called Ladarius back who declined CPR and intubation for Ms Winkler.
[2020-06-25] MEDS ORDERED: POTASSIUM CHLORIDE 20 MEQ TABLET PO SCH ×4 (14:00)
[2020-06-25] MEDS ORDERED: FUROSEMIDE 20 MG/2 ML VIAL IV SCH (16:00)
[2020-06-25 22:30] LABS: Albumin 3.6 gm/dL (3.2-5.2); Blood Urea Nitrogen 48 mg/dl (8-23); Carbon Dioxide 33 mmol/L (22-30); Chloride 100 mmol/L (96-108); Glomerular Filtration Rate 28; Glucose 84 mg/dL (70-105)
[2020-06-25 22:42] LABS: Calcium 14.6 mg/dl (8.6-10.4); Phosphorous 1.5 mg/dL (2.7-4.5)
[2020-06-25] MEDS ORDERED: NEUTRA PHOS 1 PACKET PO ONE (22:51)
[2020-06-25] MEDS ORDERED: NEUTRA PHOS 1 PACKET ONE (23:05)
[2020-06-26] MEDS: 0.9 % SODIUM CHLORIDE 1,000 ML IV SCH ×2 (02:14→07:53)
[2020-06-26] MEDS: 0.9 % SODIUM CHLORIDE 10 ML SYRINGE IV SCH ×3 (05:45→20:59)
[2020-06-26 06:26] LABS: Basophils # (Auto) 0.04 K/mcL (0.00-0.30); Basophils % (Auto) 0.4 % (0.0-2.0); Eosinophils # (Auto) 0.13 K/mcL (0.00-0.70); Eosinophils % (Auto) 1.3 % (0.0-7.0); Granulocytes % (Auto) 73.6 % (38.0-78.0); Hematocrit 41.7 % (34.1-44.9); Hemoglobin 13.3 g/dL (11.2-15.7); Lymphocytes # (Auto) 1.32 K/mcL (1.50-4.80); Lymphocytes % (Auto) 13.2 % (15.5-49.0); Mean Corpuscular HGB Conc 31.9 g/dL (31.0-36.0); Mean Platelet Volume 11.2 fL (7.4-10.4); Monocytes # (Auto) 1.15 K/mcL (0.10-0.90); Monocytes % (Auto) 11.5 % (1.0-12.0); Platelet Count 147 K/mcL (140-440); RBC 4.05 M/mcL (3.59-5.38); Red Cell Distribution Width 14.5 % (11.5-14.5)
[2020-06-26 06:58] LABS: Bilirubin,Direct < 0.2 mg/dL (0.0-0.3); Chloride 107 mmol/L (96-108)
[2020-06-26 07:00] LABS: ALT/SGPT 29 U/l (0-40); AST/SGOT 29 U/l (0-37); Albumin 3.2 gm/dL (3.2-5.2); Albumin/Globulin Ratio 1.1 (1.0-2.3); Alkaline Phosphatase 70 U/L (39-117); Bilirubin,Total 0.5 mg/dL (0.0-1.0); Blood Urea Nitrogen 40 mg/dl (8-23); Calcium 12.8 mg/dl (8.6-10.4); Carbon Dioxide 28 mmol/L (22-30); Globulin 2.9 gm/dL (2.2-3.7); Glomerular Filtration Rate 30; Glucose 73 mg/dL (70-105); Lactate Dehydrogenase 264 U/L (94-250); Phosphorous 1.6 mg/dL (2.7-4.5); Triglycerides 189 mg/dl (<150); Uric Acid 15.5 mg/dL (2.5-8.0)
[2020-06-26] MEDS ORDERED: MAGNESIUM SULFATE 2 GM/50 ML BAG IV ONE (07:35)
[2020-06-26] MEDS: POTASSIUM CHLORIDE 20 MEQ TABLET PO SCH (07:53)
[2020-06-26] MEDS: PANTOPRAZOLE 40 MG TABLET PO SCH (07:53)
--- NOTE | 2020-06-26 07:58 | Nephrology Progress Note ---
SUBJECTIVE Subjective Patient information: Note initiated : 06/26/20 at 7:56 am Service Date, if different from initiated Date: [] Patient: Leigh Ann Winkler 70 y/o F admitted on 06/24/20 for High Calcium. Chief Complaint: hypercalcemia no complaints this morning, on 1L NC, renal function stable/ slightly improving/ hypercalcemia improving Constitutional Vitals: Vital Signs Temp Pulse Resp BP Pulse Ox 36.6 C 83 15 102/68 92 06/26/20 04:01 06/25/20 06:03 06/26/20 05:52 06/26/20 04:01 06/26/20 02:01 Period Temp Pulse Resp BP Sys/Jeter Pulse Ox Last 24 Hr 36.3 C-36.6 C 13-23 93-112/36-82 90-96 Intake and Output 06/25/20 06/26/20 06/26/20 21:59 05:59 13:59 Intake Total 1000 981 706 Output Total 375 950 Balance 625 31 706 Weight 70.307 kg Intake & Output: Intake & Output 06/25/20 06/26/20 06/26/20 21:59 05:59 13:59 Intake Total 1000 981 706 Output Total 375 950 Balance 625 31 706 Weight 70.307 kg Intake: IV 1000 981 706 Sodium Chloride 0.9% 1,000 ml @ 1000 981 706 125 mls/hr IV .Q8H [facility] Rx#: [id number] Output: Urine Catheter Amount 375 950 Other: Urine Appearance Clear Clear Uretheral (Marquez) Clear Urine Color Bright Yellow Pale Uretheral (Marquez) Pale Urine Odor Normal Stool Size Small Stool Color Brown Stool Consistency Richelle HEENT A/P Assessment and plan (1) Acute kidney injury: Status: Acute (2) CKD (chronic kidney disease): Status: Chronic (3) Hypercalcemia: Status: Acute Narrative A/P Narrative: Hypercalcemia is improving. Not PTH mediated. 25 hydroxy vitamin D was 70. do not resume vitamin D s/p calcitonin 06/24, bisphosphonate- zolendronic acid 06/24, IV fluids *change fluids to LR at 100cc/ hr. encourage patient to drink free water as her Na is trending up *Continue strict I's and O's *Check renal function panel every 12 hours; uric acid daily *Can replace electrolytes per electrolyte protocol *Follow-up results of SPEP, UPEP, immunofixation, free light chains, PTH RP *Advise against using thiazides for blood pressure control in the future SHANI is improving, nonoliguric Serum creatinine 3 on 06/24/2020. SCR now down to 1.7. In the setting of volume depletion, hypercalcemia hemodynamics and volume Normotensive with low normal values Continue IV fluids as above *hold spironolactone acid-base Bicarbonate 28 BUN/ K 40/3.6 Azotemia is improving. Hypokalemia improving too with replacement. hypophosphatemia -schedule neutra phos 2 pack bid. encourage po intake hypomagnesemia give 400mg mg oxide. Time Spent With Patient Time: Total time spent is greater than 50% in coordination of care (as documented) at patient's floor/unit and/or counseling patient:
[2020-06-26] MEDS ORDERED: 0.9 % SODIUM CHLORIDE 1,000 ML IV SCH (08:19)
[2020-06-26] MEDS ORDERED: LACTATED RINGERS 1,000 ML IV SCH (09:00)
[2020-06-26 09:38] LABS: Kappa Free Light Chains 41.76 mg/L (3.30-19.40); Lambda Free Light Chains 43.63 mg/L (5.71-26.30)
[2020-06-26] MEDS: PHENYTOIN 50 MG TAB.CHEW PO SCH (10:24)
[2020-06-26] MEDS: DOCUSATE SODIUM 100 MG CAPSULE PO SCH ×2 (10:24→20:58)
[2020-06-26] MEDS: HEPARIN 5,000 UNIT/ML VIAL SQ SCH ×2 (10:25→20:58)
[2020-06-26] MEDS: FLUTICASONE PROPIONATE SPRAY.NAS NS SCH (10:25)
[2020-06-26] MEDS: CITALOPRAM 20 MG TABLET PO SCH ×2 (10:25→20:58)
[2020-06-26] MEDS ORDERED: ONDANSETRON 4 MG/2 ML VIAL IV PRN (10:52)
--- NOTE | 2020-06-26 12:21 | Cat Scan Report ---
CLINICAL INFORMATION: Right droop and weakness COMPARISON: 02/27/[address] without contrast TECHNIQUE: 2.5 mm helical slices were obtained in the skull base to vertex. Following reconstruction, axial reformatted images were reviewed at bone and parenchymal windows. The exam was performed using radiation dose optimization techniques including, but not limited to, automated exposure control, adjustment of the mA and/or kV according to patient size and use of iterative reconstruction technique. FINDINGS: The ventricles, sulci, fissures, and cisterns are enlarged compatible with mild age-related atrophy. The cerebellum has undergone mild asymmetric atrophy since the comparison exam over eight years prior. No extra-axial fluid collections are identified. Mild patchy chronic ischemic changes in the deep cerebral white matter are typical for age and unchanged. 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 There is no evidence of hemorrhage, mass effect, or edema. Bone windows show no osseous abnormality. IMPRESSION: Mild atrophy and chronic ischemic changes in deep cerebral white matter typical for age. No edema, hemorrhage or other acute finding. 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 Mild asymmetric cerebellar atrophy. This can be related to alcohol use, Dilantin other etiologies. Interpreted and Authenticated by: Florin Marcelo 06/26/20
[2020-06-26 14:03] LABS: Albumin PEP 3.44 gm/dl (3.1-4.7); Alpha-1-Globulins 0.23 gm/dl (0.1-0.5); Alpha-2-Globulins 0.88 gm/dL (0.4-1.2); Beta Globulins 0.91 gm/dL (0.6-1.2); Gamma Globulins 1.44 gm/dL (0.5-1.7); Globulin PEP 3.5 gm/dl (2.4-3.6)
[2020-06-26] MEDS: LACTATED RINGERS 1,000 ML IV SCH ×2 (14:11→22:48)
--- NOTE | 2020-06-26 16:48 | Internal Med Progress Note ---
SUBJECTIVE Subjective Patient information: Note initiated : 06/26/20 at 4:45 pm Service Date, if different from initiated Date: [] Patient: Leigh Ann Winkler 70 y/o F admitted on 06/24/20 for High Calcium. Chief Complaint: [] Ms. Winkler is a 70 year old F with with a history of global developmental delay, history of seizure, and hypertension who was sent to the ER by Dr. Tyson who found her to have hypercalcemia. Patient is a poor historian and most of the history is obtained from her chart and the ER physician Dr. Maxwell. She was found to have hand tremor. In the ER, her calcium was 19.3. 2 L normal saline bolus was given. Calcitonin 300 units x 2 was given. 1 dose zolendronic acid wa s given. When I saw this patient in the ER, she was sleeping but arousable. She can answer simple questions. Denied headache, dizziness, chest pain, shortness of breath, abdominal pain, nausea, vomiting, dysuria, polydipsia or polyuria. 06/25 Does not seem to have medical complaints. Vital signs are stable and acceptable. On 0.5 L oxygen with good desaturation. Good urine output Potassium of 3.2, creatinine 2.1, calcium of 16.6, phosphorus 2.3 25 OH vitamin D 68.44, PTH 6.0 Discussed with hole digger truck driver Dr. Galvan, who suggested to continue IV NS 125ml/h, no lasix today. 06/26 Patient is demented and not able to give complaints. She looks fine. Vital signs are stable Mag 1.5, mag 2 g was given Urine calcium 3.6 As per hole digger truck driver Dr. galvan, continue IV fluid 100ml/hr. Today she came to visit her. The sister felt her right upper eyelid is lower the left one. She last saw her one month ago. It seemed to be normal at that time. Other than left upper eyelid is mildly lower than right one. No other focal neurological deficits. CT of head -no acute change. Continue monitor Review of Systems All systems: reviewed and no additional remarkable complaints except as stated Constitutional Vitals: Vital Signs Temp Pulse Resp BP Pulse Ox 97.9 F 83 16 117/64 93 06/26/20 16:00 06/25/20 06:03 06/26/20 10:06/26/20 16:00 06/26/20 14:15 Period Temp Pulse Resp BP Sys/Jeter Pulse Ox Last 24 Hr 97.4 F-97.9 F 13-23 93-117/36-82 86-96 Intake and Output 06/26/20 06/26/20 06/26/20 05:59 13:59 21:59 Intake Total 981 1785 60 Output Total 950 125 Balance 31 1785 -65 Weight 70.307 kg Patient Weight 06/27/20 05:59 Weight 70.307 kg Intake & Output: Intake & Output 06/26/20 06/26/20 06/26/20 05:59 13:59 21:59 Intake Total 981 1785 60 Output Total 950 125 Balance 31 1785 -65 Weight 70.307 kg Intake: IV 981 1125 Sodium Chloride 0.9% 1,000 ml @ 981 1075 125 mls/hr IV .Q8H [facility] Rx#: [id number] Oral 660 60 Output: Urine Catheter Amount 950 Void Amount 125 Other: Meal Lunch Percent of Meal Consumed 25% Feeding Ability Assist with Tray Set Up Urine Appearance Clear Clear Clear Uretheral (Marquez) Clear Urine Color Pale Bright Yellow Bright Yellow Uretheral (Marquez) Bright Yellow Urine Odor Normal Normal Additional findings Additional findings: General - No acute distress Eyes - PERRLA, EOM intact ENT no rhinorrhea, no noticeable or palpable swelling, no redness or rash around throat or on face Neck supple, no JVD, no thyromegaly Respiratory: Lungs -clear, no wheezing or crackles. Cardiovascular - RRR no m/r/g, GI - Normal bowel sounds, no distended, soft. Extremeties - No edema, cyanosis or clubbing. Left hand significantly smaller than right hand. Hemo/lymphatic/immune no lymphadenopathy Neurological Alert and oriented x 2, no focal neurological deficits. Psychiatry flat affect OBJ DATA Labs CBC & Chem 7: 06/26/20 04:40 06/26/20 04:40 Labs: Abnormal Lab Results 06/26/20 06/26/20 06/25/20 04:40 04:40 21:11 MCV 103.0 H MPV 11.2 H Lymph % (Auto) 13.2 L Lymph # (Auto) 1.32 L [place] # (Auto) 1.15 H VBG Lactic Acid Sodium 146 H POC Potassium Potassium POC Chloride Chloride Carbon Dioxide 33 H POC Total CO2 POC BUN BUN 40 H 48 H Creatinine 1.7 H 1.8 H POC Creatinine Glucose Uric Acid 15.5 H Calcium 12.8 H 14.6 H* POC WB Ioniz Calcium Phosphorus 1.6 L 1.5 L Magnesium 1.5 L Lactate Dehydrogenase 264 H Triglycerides 189 H PTH Intact Free [place] LC, Quant Free Lambda LC, Quant 06/25/20 06/24/20 06/24/20 06:00 21:10 16:33 MCV MPV Lymph % (Auto) Lymph # (Auto) [place] # (Auto) VBG Lactic Acid Sodium POC Potassium Potassium 3.2 L 2.8 L* POC Chloride Chloride 95 L 95 L Carbon Dioxide 34 H 36 H POC Total CO2 POC BUN BUN 58 H 70 H Creatinine 2.1 H 2.4 H POC Creatinine Glucose 112 H Uric Acid 19.7 H Calcium 16.6 H* 17.5 H* 19.4 H* POC WB Ioniz Calcium Phosphorus 2.3 L Magnesium Lactate Dehydrogenase Triglycerides 176 H PTH Intact Free [place] LC, Quant Free Lambda LC, Quant 06/24/20 06/24/20 06/24/20 16:33 16:33 16:33 MCV MPV Lymph % (Auto) Lymph # (Auto) [place] # (Auto) VBG Lactic Acid Sodium POC Potassium 2.9 L* Potassium POC Chloride 90 L Chloride Carbon Dioxide POC Total CO2 36 H POC BUN 65 H BUN Creatinine POC Creatinine 3.0 H Glucose Uric Acid Calcium POC WB Ioniz Calcium 2.00 H* Phosphorus Magnesium Lactate Dehydrogenase Triglycerides PTH Intact 6.0 L Free [place] LC, Quant 41.76 H Free Lambda LC, Quant 43.63 H 06/24/20 15:07 MCV MPV Lymph % (Auto) Lymph # (Auto) [place] # (Auto) VBG Lactic Acid 2.2 H Sodium POC Potassium Potassium POC Chloride Chloride Carbon Dioxide POC Total CO2 POC BUN BUN Creatinine POC Creatinine Glucose Uric Acid Calcium POC WB Ioniz Calcium Phosphorus Magnesium Lactate Dehydrogenase Triglycerides PTH Intact Free [place] LC, Quant Free Lambda LC, Quant Meds: Medications Citalopram Hydrobromide (Celexa) 20 mg PO BID [facility] Docusate Sodium (Colace) 100 mg PO BID [facility] Fluticasone Propionate (Flonase) 1 spray NS QDAY [facility] Heparin Sodium (Porcine) (Heparin) 5,000 unit SQ Q12 [facility] Lactated Ringer's (Lactated Ringers) 1,000 mls @ 100 mls/hr IV .Q10H [facility] Last Admin: 06/26/20 14:11 Dose: Not Given Documented by: Ondansetron HCl (Zofran) 4 mg IV Q4HP PRN; Protocol PRN Reason: Nausea And Vomiting Pantoprazole Sodium (Protonix) 40 mg PO QAMAC [facility] Phenytoin (Dilantin) 50 mg PO DAILY [facility] Potassium/Phosphorus/Sodium (Neutra Phos) 2 packet PO BID [facility] Stop: 06/28/20 21:00 Sodium Chloride (Saline Flush) 10 ml IV Q8 [facility] Last Admin: 06/26/20 14:10 Dose: Not Given Documented by: A/P Narrative A/P Narrative: 1. Hypercalcemia Calcium 19.3 in the ER Etiology unknown Pt is on Vit D3 2000 units daily, calcium carbonate 500mg daily, HCTZ 25mg daily EKG - QT 432 PTH 6.0 PTH related protein, 25-HO vit D (68.44), 1,25 OH vit D, SPEP with immunofixation, free kappa lambda chains, urine calcium 3.6 CT chest - no evidence of malignancy Calcitonin 300 units x 2 and 1 dose zolendronic acid were given in the ER As per Dr. Galvan, LR 100ml/hr. Vitamin D, calcium and HCTZ are on hold. repeat calcium in am Hedis Review Nurse Dr. Galvan is no board. Really appreciate it. 2. Global developmental delay/dementia Monitor 3. Hx of seizure Continue home medication phenytoin 4. Dehydration IV fluid 5. SHANI or SHANI on CKD stage 3-4, creatinine 1.1 on 06/19/2018 Avoid nephrotoxic meds As per Dr. Galvan, repeat renal function Bid 6. Elevation of liver enzyme resolved Repeat liver enzyme in the morning 7. Hypokalemia Replaced Continue Spironolactone Repeat potassium in the morning 8. HTN Continue metoprolol 50 mg twice daily and Spironolactone 9. DVT prophylaxis: Heparin 10. CODE STATUS: DNR per paperwork from [employer] . Patient also declined CPR and intubation. Time Spent With Patient Time: Total time spent is greater than 50% in coordination of care (as documented) at patient's floor/unit and/or counseling patient:
[2020-06-26 17:30] LABS: Basophils # (Auto) 0.04 K/mcL (0.00-0.30); Basophils % (Auto) 0.4 % (0.0-2.0); Eosinophils % (Auto) 1.8 % (0.0-7.0); Granulocytes % (Auto) 69.6 % (38.0-78.0); Hematocrit 40.1 % (34.1-44.9); Hemoglobin 13.5 g/dL (11.2-15.7); Lymphocytes # (Auto) 1.84 K/mcL (1.50-4.80); Lymphocytes % (Auto) 16.8 % (15.5-49.0); Mean Cell Volume 98.3 fL (80.0-100.0); Mean Corpuscular HGB Conc 33.7 g/dL (31.0-36.0); Mean Platelet Volume 11.3 fL (7.4-10.4); Monocytes # (Auto) 1.25 K/mcL (0.10-0.90); Monocytes % (Auto) 11.4 % (1.0-12.0); Platelet Count 158 K/mcL (140-440); RBC 4.08 M/mcL (3.59-5.38); Red Cell Distribution Width 14.1 % (11.5-14.5)
[2020-06-26 17:48] LABS: ALT/SGPT 34 U/l (0-40); AST/SGOT 31 U/l (0-37); Albumin 3.7 gm/dL (3.2-5.2); Albumin/Globulin Ratio 1.2 (1.0-2.3); Alkaline Phosphatase 79 U/L (39-117); Bilirubin,Total 0.5 mg/dL (0.0-1.0); Blood Urea Nitrogen 32 mg/dl (8-23); Calcium 11.9 mg/dl (8.6-10.4); Carbon Dioxide 31 mmol/L (22-30); Chloride 100 mmol/L (96-108); Globulin 3.1 gm/dL (2.2-3.7); Glomerular Filtration Rate 35; Glucose 81 mg/dL (70-105)
[2020-06-26] MEDS: NEUTRA PHOS 1 PACKET PO SCH (20:58)
[2020-06-26] MEDS ORDERED: NEUTRA PHOS 1 PACKET PO SCH (21:00)
[2020-06-27] MEDS: 0.9 % SODIUM CHLORIDE 10 ML SYRINGE IV SCH (05:31)
[2020-06-27 06:38] LABS: Basophils # (Auto) 0.04 K/mcL (0.00-0.30); Basophils % (Auto) 0.4 % (0.0-2.0); Eosinophils # (Auto) 0.26 K/mcL (0.00-0.70); Eosinophils % (Auto) 2.8 % (0.0-7.0); Granulocytes % (Auto) 65.7 % (38.0-78.0); Hematocrit 41.2 % (34.1-44.9); Hemoglobin 13.2 g/dL (11.2-15.7); Lymphocytes # (Auto) 1.84 K/mcL (1.50-4.80); Lymphocytes % (Auto) 19.8 % (15.5-49.0); Mean Cell Volume 104.6 fL (80.0-100.0); Mean Platelet Volume 11.2 fL (7.4-10.4); Monocytes # (Auto) 1.05 K/mcL (0.10-0.90); Monocytes % (Auto) 11.3 % (1.0-12.0); Platelet Count 145 K/mcL (140-440); RBC 3.94 M/mcL (3.59-5.38); Red Cell Distribution Width 14.5 % (11.5-14.5); WBC 9.3 K/mcL (4.50-11.00)
[2020-06-27] MEDS ORDERED: PANTOPRAZOLE 40 MG TABLET PO SCH (07:30)
[2020-06-27] MEDS ORDERED: MAGNESIUM OXIDE 400 MG TABLET PO SCH ×2 (09:00→21:00)
[2020-06-27] MEDS ORDERED: FLUTICASONE PROPIONATE SPRAY.NAS NS SCH (09:00)
[2020-06-27] MEDS ORDERED: PHENYTOIN 50 MG TAB.CHEW PO SCH (09:00)
[2020-06-27 09:06] LABS: ALT/SGPT 38 U/l (0-40); AST/SGOT 35 U/l (0-37); Albumin 3.5 gm/dL (3.2-5.2); Albumin/Globulin Ratio 1.3 (1.0-2.3); Alkaline Phosphatase 74 U/L (39-117); Bilirubin,Total 0.6 mg/dL (0.0-1.0); Blood Urea Nitrogen 26 mg/dl (8-23); Carbon Dioxide 26 mmol/L (22-30); Chloride 103 mmol/L (96-108); Globulin 2.6 gm/dL (2.2-3.7); Glomerular Filtration Rate 38; Glucose 103 mg/dL (70-105)
[2020-06-27] MEDS: NEUTRA PHOS 1 PACKET PO SCH (09:43)
[2020-06-27] MEDS: DOCUSATE SODIUM 100 MG CAPSULE PO SCH (09:43)
[2020-06-27] MEDS: HEPARIN 5,000 UNIT/ML VIAL SQ SCH (09:44)
[2020-06-27] MEDS: CITALOPRAM 20 MG TABLET PO SCH (09:44)
[2020-06-27] MEDS: LACTATED RINGERS 1,000 ML IV SCH ×2 (09:44→10:58)
--- NOTE | 2020-06-27 12:51 | Discharge Summary ---
Discharge Provider Provider Patient information: Note initiated : 06/27/20 at 12:50 pm Service Date, if different from initiated Date: [] Patient: Leigh Ann Winkler 70 y/o F admitted on 06/24/20 for High Calcium. Chief Complaint: [] Date of admission: 06/24/20 21:57 Discharge date: 06/27/20 Primary care physician: Beverley Tyson DO Consults: 06/24/20 Consult to Physician [CONS] Stat Comment: Consulting Provider: Adrienne Galvan Reason For Exam: Physician to Consult Consult to Physician [CONS] Stat Comment: Consulting Provider: Black Russo Reason For Exam: Physician to Consult 06/26/20 11:54 Consult to Physician [CONS] Routine Comment: Consulting Provider: [facility] Marleen Reason For Exam: Physician to Consult Discharge Meds Discharge Medications Home Medications comp.stocking,knee,long,medium #12 each 02/07/19 [Rx Confirmed 06/24/20 Last Taken Unknown] fluticasone furoate 27.5 mcg/actuation nasal spray,suspension 1 spray INTRANASAL QDAY 02/07/19 [History Confirmed 06/24/20 Last Taken Unknown] spironolactone 25 mg tablet 12.5 mg PO QDAY #30 tab 03/25/20 [Rx Confirmed 06/24/20 Last Taken Unknown] phenytoin 50 mg chewable tablet 50 mg PO .COMPLEX #30 tab 04/21/20 [Rx Confirmed 06/24/20 Last Taken Unknown] citalopram 20 mg tablet 20 mg PO BID #60 tab 04/28/20 [Rx Confirmed 06/24/20 Last Taken Unknown] metoprolol tartrate 50 mg tablet 50 mg PO BID #60 tab 04/28/20 [Rx Confirmed 06/24/20 Last Taken Unknown] magnesium oxide 400 mg PO DAILY #20 tab 06/27/20 [Rx Last Taken Unknown] potassium, sodium phosphates [Phos-NaK] 2 packet PO BID #20 ea 06/27/20 [Rx Last Taken Unknown] COURSE Hospital Course Hospital course: 1. Hypercalcemia Calcium 19.3 in the ER Etiology unknown Pt is on Vit D3 2000 units daily, calcium carbonate 500mg daily, HCTZ 25mg daily EKG - QT 432 PTH 6.0 PTH related protein, 25-HO vit D (68.44), 1,25 OH vit D, SPEP with immunofixation, free kappa lambda chains, urine calcium 3.6 CT chest - no evidence of malignancy Calcitonin 300 units x 2 and 1 dose zolendronic acid were given in the ER Vitamin D, calcium and HCTZ are on hold. today her calcium 11.0. Service Electrician Dr. Galvan cleared to discharge her today. Dr. Galvan will see her in 2 weeks. 2. Global developmental delay/dementia Monitor 3. Hx of seizure Continue home medication phenytoin 4. Dehydration IV fluid resolved 5. 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 f/u with Dr. Galvan 6. Elevation of liver enzyme resolved Repeat liver enzyme in the morning 7. Hypokalemia Replaced Continue Spironolactone Repeat potassium in the morning 8. HTN Continue metoprolol 50 mg twice daily and Spironolactone 9. Electrolytes derangement continue mag and phos repeat electrolytes in 3 days. Ms. Winkler is a 70 year old F with with a history of global developmental delay, history of seizure, and hypertension who was sent to the ER by Dr. Tyson who found her to have hypercalcemia. Patient is a poor historian and most of the history is obtained from her chart and the ER physician Dr. Maxwell. She was found to have hand tremor. In the ER, her calcium was 19.3. 2 L normal saline bolus was given. Calcitonin 300 units x 2 was given. 1 dose zolendronic acid was given. When I saw this patient in the ER, she was sleeping but arousable. She can answer simple questions. Denied headache, dizziness, chest pain, shortness of breath, abdominal pain, nausea, vomiting, dysuria, polydipsia or polyuria. 06/25 Does not seem to have medical complaints. Vital signs are stable and acceptable. On 0.5 L oxygen with good desaturation. Good urine output Potassium of 3.2, creatinine 2.1, calcium of 16.6, phosphorus 2.3 25 OH vitamin D 68.44, PTH 6.0 Discussed with chief program officer Dr. Galvan, who suggested to continue IV NS 125ml/h, no lasix today. 06/26 Patient is demented and not able to give complaints. She looks fine. Vital signs are stable Mag 1.5, mag 2 g was given Urine calcium 3.6 As per chief program officer Dr. galvan, continue IV fluid 100ml/hr. Today she came to visit her. The sister felt her right upper eyelid is lower the left one. She last saw her one month ago. It seemed to be normal at that time. Other than left upper eyelid is mildly lower than right one. No other focal neurological deficits. CT of head -no acute change. Continue monitor 06/27 Pt does not have new complaints. Looks comfortable. Vital signs are stable. Calcium 11.[address] Galvan cleared to discharge her today. Dr. Galvan will see her in 2 weeks. Pt will be discharged to SNF to f/w pcp and nephrology. Repeat CBC, CMP, mag and phos in 2 days. Continue pt/ot. Vitamin D, calcium and HCTZ are on hold call pcp for medical issues. Discharge diagnosis: hypercalcemia Time Spent with Patient Time attestation: Total time spent providing and/or coordinating discharge services: EXAM Constitutional Vitals: Temp Pulse Resp BP Pulse Ox 97.5 F 77 18 101/61 97 06/27/20 11:47 06/27/20 11:47 06/27/20 11:47 06/27/20 11:47 06/27/20 11:47 Additional findings Additional findings: General - No acute distress Eyes - PERRLA, EOM intact ENT no rhinorrhea, no noticeable or palpable swelling, no redness or rash around throat or on face Neck supple, no JVD, no thyromegaly Respiratory: Lungs -clear, no wheezing or crackles. Cardiovascular - RRR no m/r/g, GI - Normal bowel sounds, no distended, soft. Extremeties - No edema, cyanosis or clubbing. Left hand significantly smaller than right hand. Hemo/lymphatic/immune no lymphadenopathy Neurological Alert and oriented x 1-2, no focal neurological deficits. Psychiatry flat affect Discharge Data Data Completed and Pending Labs on day of discharge: Labs from last 24 hours 06/27/20 06/27/20 06/27/20 08:00 08:00 05:05 WBC 9.3 RBC 3.94 Hgb 13.2 Hct 41.2 MCV 104.6 H MCH 33.5 MCHC 32.0 RDW 14.5 Plt Count 145 MPV 11.2 H Gran % 65.7 Lymph % (Auto) 19.8 [place] % (Auto) 11.3 Eos % (Auto) 2.8 Baso % (Auto) 0.4 Gran # 6.09 Lymph # (Auto) 1.84 [place] # (Auto) 1.05 H Eos # (Auto) 0.26 Baso # (Auto) 0.04 Sodium 142 Potassium 3.9 Chloride 103 Carbon Dioxide 26 Anion Gap 13.0 BUN 26 H Creatinine 1.4 H GFR Calculation 38 Glucose 103 Calcium 11.0 H Phosphorus 1.5 L Magnesium 1.4 L Total Bilirubin 0.6 AST 35 ALT 38 Alkaline Phosphatase 74 Total Protein 6.1 Albumin 3.5 Albumin (PEP) Globulin 2.6 Globulin (PEP) Albumin/Globulin Ratio 1.3 Albumin/Globulin (PEP) Mvnrf-0-Tcwqmviud Rjazo-7-Beisqckdi Beta Globulins Gamma Globulins PEP Interpretation PATRICA Interpretation 06/27/20 06/26/20 06/26/20 05:05 16:40 16:40 WBC RBC Hgb Hct MCV MCH MCHC RDW Plt Count MPV Gran % Lymph % (Auto) [place] % (Auto) Eos % (Auto) Baso % (Auto) Gran # Lymph # (Auto) [place] # (Auto) Eos # (Auto) Baso # (Auto) Sodium TNP 141 Potassium TNP 3.4 Chloride TNP 100 Carbon Dioxide TNP 31 H Anion Gap TNP 10.0 BUN TNP 32 H Creatinine TNP 1.5 H GFR Calculation TNP 35 Glucose TNP 81 Calcium TNP 11.9 H Phosphorus 1.0 L Magnesium TNP 2.1 Total Bilirubin TNP 0.5 AST TNP 31 ALT TNP 34 Alkaline Phosphatase TNP 79 Total Protein TNP 6.8 Albumin TNP 3.7 Albumin (PEP) Globulin TNP 3.1 Globulin (PEP) Albumin/Globulin Ratio TNP 1.2 Albumin/Globulin (PEP) Tavas-8-Edmgcbqrs Sorsy-2-Thkfmzhwk Beta Globulins Gamma Globulins PEP Interpretation PATRICA Interpretation 06/26/20 06/24/20 06/24/20 16:40 16:33 16:33 WBC 11.0 RBC 4.08 Hgb 13.5 Hct 40.1 MCV 98.3 MCH 33.1 MCHC 33.7 RDW 14.1 Plt Count 158 MPV 11.3 H Gran % 69.6 Lymph % (Auto) 16.8 [place] % (Auto) 11.4 Eos % (Auto) 1.8 Baso % (Auto) 0.4 Gran # 7.63 Lymph # (Auto) 1.84 [place]ie # (Auto) 1.25 H Eos # (Auto) 0.20 Baso # (Auto) 0.04 Sodium Potassium Chloride Carbon Dioxide Anion Gap BUN Creatinine GFR Calculation Glucose Calcium Phosphorus Magnesium Total Bilirubin AST ALT Alkaline Phosphatase Total Protein Albumin Albumin (PEP) 3.44 Globulin Globulin (PEP) 3.5 Albumin/Globulin Ratio Albumin/Globulin (PEP) 1.0 Cigme-9-Osrokflha 0.23 Gkgya-5-Bkksitomc 0.88 Beta Globulins 0.91 Gamma Globulins 1.44 PEP Interpretation PATRICA Interpretation Discharge Plan Patient/Caregiver Discharge Instructions Activity: return to school once cleared by your PCP/specialist Diet: Regular Diet Prescriptions: New magnesium oxide 400 mg (241.3 mg magnesium) Tablet 400 mg PO DAILY Qty: 20 RF: 0 potassium, sodium phosphates [Phos-NaK] 280-160-250 mg Powder In Packet 2 packet PO BID Qty: 20 RF: 0 Continued spironolactone 25 mg tablet 12.5 mg PO QDAY Qty: 30 RF: 3 phenytoin 50 mg tablet,chewable 50 mg PO .COMPLEX Qty: 30 RF: 3 citalopram 20 mg tablet 20 mg PO BID Qty: 60 RF: 2 metoprolol tartrate 50 mg tablet 50 mg PO BID Qty: 60 RF: 2 fluticasone furoate 27.5 mcg/actuation spray,suspension 1 spray INTRANASAL QDAY RF: 0 Discontinued hydrochlorothiazide 25 mg tablet 25 mg PO QDAY Qty: 30 RF: 3 cholecalciferol (vitamin D3) 2,000 unit capsule 2,000 unit PO QDAY RF: 0 multivitamin capsule capsule 1 cap PO QAM RF: 0 calcium carbonate [Calcium 500] 500 mg calcium (1,250 mg) tablet 500 mg PO QDAY RF: 0 acetaminophen [Tylenol] 325 mg tablet 650 mg PO Q6H PRN (Reason: Pain) RF: 0 furosemide [Lasix] 20 mg tablet 40 mg PO QDAY RF: 0 No Action (DME) comp.stocking,knee,long,medium misc See Dose Instructions .ROUTE .MEDSUPPLY Qty: 12 RF: 0 Other Ambulatory Orders: Complete Blood Count (Routine) Timeframe: 2 Days Facility: [facility] - Location: Laboratory Ordered By: Black Russo Comprehensive Metabolic Panel (Routine) Timeframe: 2 Days Facility: [facility] - Location: Laboratory Ordered By: Black Russo Magnesium (Routine) Timeframe: 2 Days Facility: [facility] - Location: Laboratory Ordered By: Black Russo Phosphorous (Routine) Timeframe: 2 Days Facility: [facility] - Location: Laboratory Ordered By: Black Russo Follow Up Plan Follow up with: Adrienne Galvan MD [Physician] - (in 2 weeks. ) Beverley Tyson DO [Primary Care Provider] - (in 3 days. ) Patient Disposition: Xfer SNF Prognosis: Critical I certify that the patient requires SNF services: Yes Discharge Orders: Discharge Order (Routine); Ordered 06/27/20 Ordered By: Black Russo
[2020-06-27] MEDS ORDERED: NEUTRA PHOS 1 PACKET PO SCH (21:00)
[2020-06-30 09:29] LABS: Albumin 100 %; Alpha-1-Globulin 0 %; Alpha-2-Globulin 0 %; Gamma Globulin 0 %; Pro/Creat Ratio 75 mg/g cre (21-161); Protein Total Random Urine 5 mg/dL (5-24)
[2020-06-30 13:07] LABS: Vit D 1,25 Dihydroxy 13 pg/mL (18-72)
== END 2020-06-27 14:52 | DRG 641 ==
LOC: ED 14:33 → ICU 14:33 → OBSVTOIN 21:57 → MEDSUR 06-26 14:27
PROVIDERS: ADMIT Internal Medicine; ATTEND Internal Medicine